=== PATIENT | male | born 1955 | race Caucasian/White ===

== ENCOUNTER 2017-10-21 21:23 | Emergency (ER) | payer OTHER ==
[2017-10-21 21:36] VITALS: BP 130/80
[2017-10-21] MEDS ORDERED: TDAP ADULT 0.5 ML INJ (BOOSTRIX) IM ONE (21:38)
[2017-10-21] MEDS ORDERED: LET GEL TOPICAL 1 EA SYR TP ONE (21:42)
--- NOTE | 2017-10-21 21:48 | EDPHY ---
H & P Time Seen by Provider: 10/21/17 21:45 HPI/ROS: CHIEF COMPLAINT: Finger laceration HISTORY OF PRESENT ILLNESS: The patient is a 62-year-old male who presents to the emergency department after cutting his thumb with a stainless steel knife while cooking dinner. The injury occurred 2 hr ago. He cut the tip of his thumb off. It included a small portion of his nail. He has no numbness or tingling. Bleeding is controlled. REVIEW OF SYSTEMS: Negative Past Medical history: Noncontributory Smoking Status: Never smoked Physical Exam: General Appearance: Alert and no distress. Head: Pupils equal. Normal. Respiratory: No respiratory distress. Extremities: The patient has a small avulsion at the tip of his left thumb. This could includes small distal piece of the nail. It does not include the nail bed. Bleeding is controlled. Neurovascular intact distally. Skin: No rashes or lesions. Neuro: Alert. Normal mood and affect. Constitutional: Initial Vital Signs Temperature (C) 36.8 C 10/21/17 21:34 Heart Rate 83 10/21/17 21:34 Respiratory Rate 16 10/21/17 21:34 Blood Pressure 130/80 H 10/21/17 21:34 O2 Sat (%) 93 10/21/17 21:34 O2 Delivery Mode Room Air Allergies/Adverse Reactions: No Known Allergies Allergy (Unverified 10/21/17 21:33) Home Medications: Medication Instructions Recorded Bp Med? 10/21/17 Montelukast Sodium [Singulair] 10/21/17 Medical Decision Making ED Course/Re-evaluation: In the emergency department I discussed wound care. The patient does not need sutures. Patient had his wound cleaned and dressed. He received his tetanus shot. He is given warnings prior to leaving. Differential Diagnosis: My differential includes but is not limited to laceration, avulsion, foreign body, nail bed injury - Data Points Medications Given: Discontinued Medications Diphtheria/Tetanus/Acell Pertussis (Boostrix) 0.5 ml IM .ONCE ONE Stop: 10/21/17 21:39 Last Admin: 10/21/17 21:46 Dose: 0.5 ml Tetracaine/Epinephrine/Lidocaine (Let Gel Topical) 1 ea TP EDNOW ONE Stop: 10/21/17 21:43 Last Admin: 10/21/17 21:45 Dose: 1 ea Departure - Departure Disposition: Home, Routine, Self-Care Clinical Impression: Avulsion of skin of left thumb Qualifiers: Encounter type: initial encounter Qualified Code(s): S61.002A - Unspecified open wound of left thumb without damage to nail, initial encounter Condition: Good Instructions: Skin Avulsion (ED) Additional Instructions: Keep the wound clean and dry. Return with increased redness or swelling.
== END 2017-10-21 22:12 | disposition home or self-care (01) ==
LOC: CED 21:23
DX: S61.002A Unspecified open wound of left thumb without damage to nail, initial encounter (principal); Z23 Encounter for immunization; W26.0XXA Contact with knife, initial encounter; Y99.8 Other external cause status; Y93.G9 Activity, other involving cooking and grilling